=== PATIENT | male | born 1955 | race Caucasian/White ===

== ENCOUNTER 2022-10-17 11:28 | Outpatient (CLI) | payer MEDICARE | END 2022-10-17 11:29 | disposition home or self-care (01) | LOC: SCSRAD 11:28 | PROVIDERS: ATTEND Family Medicine | DX: S99.911A Unspecified injury of right ankle, initial encounter (principal) ==

== ENCOUNTER 2022-11-10 14:40 | Outpatient (CLI) | payer MEDICARE ==
[2022-11-10 16:14] LABS: #Eosinphils 0.2 10x3/uL (0.0-0.5); #Monocytes 0.9 10x3/uL (0.0-1.1); #Neutrophils 4.2 10x3/uL (1.5-8.4); %Basophils 0.3 % (0.0-2.0); %Eosinophils 2.3 % (0.0-6.0); %Lymphocytes 27.1 % (18.0-47.0); %Monocytes 12.2 % (0.0-10.0); %Neutrophils 57.8 % (40.0-75.0); Hemoglobin 16.2 g/dL (13.5-17.5); Mean Corpuscular HGB CONC 33.6 g/dL (32.0-36.0); Mean Corpuscular Hemoglobin 30.5 pg (27.0-33.0); Mean Corpuscular Volume 90.6 fl (81.2-95.1); Mean Platelet Volume 11.2 fl (7.4-10.4); Platelet Count 162 10x3/uL (150-450); RBC Distribution Width 13.1 % (11.5-14.5); Red Blood Cell (RBC) Count 5.32 10x6/uL (4.32-5.72); White Blood Cell (WBC) Count 7.3 10x3/uL (3.5-10.5)
[2022-11-10 16:27] LABS: Anion Gap 16 mmol/L (10-20); BUN (Urea Nitrogen) 21 mg/dL (8.4-25.7); Calc. Creatinine Clearance 0 mL/min (70-130); Calcium 9.2 mg/dL (7.8-10.44); Carbon Dioxide 25 mmol/L (23-31); Chloride 105 mmol/L (98-107); Estimated GFR 83; Glucose 85 mg/dL (80-115); Sodium 142 mmol/L (136-145)
== END 2022-11-10 14:41 | disposition home or self-care (01) ==
LOC: LABBT 14:40
PROVIDERS: ATTEND Specialist
DX: Z01.818 Encounter for other preprocedural examination (principal); K42.9 Umbilical hernia without obstruction or gangrene
CPT/HCPCS: 71046; 80048; 85025

== ENCOUNTER 2022-11-13 07:24 | Day surgery (SDC) | payer MEDICARE ==
[2022-11-10 15:46] VITALS: BMI 29.3
[2022-11-13] MEDS ORDERED: Acetaminophen 500 MG TAB ONE (08:09)
[2022-11-13] MEDS ORDERED: Ketorolac Tromethamine 30 MG/ML VIAL ONE (08:09)
[2022-11-13] MEDS ORDERED: Bupivacaine/Epinephrine 0.25% 30 ML VIAL ONE (08:55)
[2022-11-13] MEDS ORDERED: fentaNYL PF 100 MCG/2 ML SYRINGE ONE (10:26)
[2022-11-13] MEDS ORDERED: Sodium Chloride 0.9% 100 ML ONE (10:35)
[2022-11-13] MEDS ORDERED: CEFAZOLIN 2 GM VIAL ONE (10:35)
[2022-11-13] MEDS ORDERED: PROPOFOL 200 MG/20 ML VIAL ONE (10:49)
[2022-11-13] MEDS ORDERED: Dexamethasone 20 MG/5 ML VIAL ONE (10:49)
[2022-11-13] MEDS ORDERED: Ondansetron PF 4 MG/2 ML Vial ONE (10:49)
[2022-11-13] MEDS ORDERED: Lidocaine 1% PF 5 ML VIAL ONE (10:49)
== END 2022-11-13 13:18 | disposition home or self-care (01) ==
LOC: SDC 07:24
PROVIDERS: ATTEND Specialist
PROC: 0WUF07Z Supplement Abdominal Wall with Autologous Tissue Substitute, Open Approach (ICD-10-PCS; principal; 2022-11-13)
DX: K42.9 Umbilical hernia without obstruction or gangrene (principal); E78.5 Hyperlipidemia, unspecified; E11.9 Type 2 diabetes mellitus without complications; K64.4 Residual hemorrhoidal skin tags; N20.0 Calculus of kidney; G47.33 Obstructive sleep apnea (adult) (pediatric); J98.4 Other disorders of lung; Z90.89 Acquired absence of other organs; Z91.048 Other nonmedicinal substance allergy status
CPT/HCPCS: C1889; J1100; J1885; J2405; J2704; J3490